=== PATIENT | male | born 1955 | race Caucasian/White ===

== ENCOUNTER 2016-12-25 09:16 | Day surgery (SDC) | payer OTHER ==
[~2016-12-25] VITALS: Ht 172.7 cm; Wt 86.5 kg
[~2016-12-25 09:16] MED LIST: 0.9% Sodium Chloride 1,000 ML IV SCH; LOSA50TA37 PO; MULT1CAP33 PO; Sodium Chloride LOK Flush 10 mL Syringe IV PRN; fentaNYL-PF 50 mCg/mL 2 mL Inj IVPUSH PRN
[2016-12-25 09:43] VITALS: BP 167/76; PULSE 48; RESP 17; O2SAT 96
[2016-12-25] MEDS ORDERED: 0.9% Sodium Chloride 1,000 ML IV ONE (10:32)
[2016-12-25 10:42] VITALS: BP 133/59; PULSE 42; RESP 16; O2SAT 94
[2016-12-25 10:52] VITALS: BP 117/64; PULSE 43; RESP 16; O2SAT 95
[2016-12-25 11:01] VITALS: BP 142/69; PULSE 39; RESP 16; O2SAT 95
--- NOTE | 2016-12-25 22:21 | ENDO ---
[address] [address] ENDOSCOPY PROCEDURE PATIENT: TALI JOHNSON : 1955 MR#: [id number] ADMIT: 12/25/2016 JOB ID: [id number] DATE OF PROCEDURE: 12/25/2016 PRIMARY PROVIDER: Thnaia Lorenzo MD. PROCEDURE: Colonoscopy. 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 This was judged to be an approximately 2 cm polyp. It is pedunculated. EQUIPMENT: [employer]-H180AL. SEDATION: 1. Versed 4 mg. 2. Fentanyl 100 mcg. COMPLICATIONS: None identified. BOWEL PREPARATION: Excellent. PROCEDURE INFORMATION: After the risks and benefits were explained, written and verbal informed consent was obtained. The patient was brought into the endoscopy suite and placed into the left lateral decubitus position. Sedation was achieved using the above-stated medications with the addition of oxygen via nasal cannula. A digital rectal examination was accomplished. Moderate internal and external, nonbleeding, nonthrombosed hemorrhoids were noted. The scope was introduced into the rectum and advanced to the cecum as identified by the appendiceal orifice and ileocecal valve. The scope was slowly withdrawn to carefully examine the mucosa for any defects or lesions. Multiple direct views were made through the dentate line for exclusion of pathology. The colon was decompressed. Scope was removed from the patient who tolerated the procedure well. FINDINGS: There were no significant polyps, mass lesions, or inflammatory features identified throughout. We had excellent views in the cecum and could see the scarred mucosa from the prior polypectomy adjacent to the appendiceal orifice. There was absolutely no suggestion of any residual adenomatous mucosa in this location. ENDOSCOPIC DIAGNOSES: 1. Hemorrhoids. 2. Otherwise visually unremarkable colonoscopy. RECOMMENDATIONS: Considering the large tubulovillous adenoma that was removed in September 2015, moving forward from today I would recommend a repeat colonoscopy in three years' time.
== END 2016-12-25 23:59 | disposition home or self-care (01) ==
LOC: END 09:16
PROVIDERS: ATTEND Internal Medicine Gastroenterology
DX: Z12.11 Encounter for screening for malignant neoplasm of colon (principal); Z86.010 Personal history of colon polyps; K64.9 Unspecified hemorrhoids; I10 Essential (primary) hypertension; I42.2 Other hypertrophic cardiomyopathy; I15.9 Secondary hypertension, unspecified; G47.33 Obstructive sleep apnea (adult) (pediatric); G25.81 Restless legs syndrome
CPT/HCPCS: G0105; G0500; J2250; J3010; J7030